=== PATIENT | male | born 2000 | race Caucasian/White ===

== ENCOUNTER 2024-06-24 08:52 | Outpatient (OUT) | payer BC, SELFPAY ==
--- NOTE | 2024-06-24 | XR_ITS ---
The [address] [address] Patient Name: MARTHA CROWE MRN: [id number] date: 2000 Sex: M Assigned Patient Location: Current Patient Location: Accession/Order Number: [id number] Exam Date: 06/24/2024 08:53 Report Date: 06/25/2024 05:26 At the request of: HAO ZIMMER Procedure: XR ankle RT min 3V PROCEDURE: XR ankle RT min 3V HISTORY: RIGHT ANKLE PAIN ; lateral ankle pain since injury 2 months ago COMPARISON: None. FINDINGS: BONES:No fracture, acute abnormality, or significant arthropathy. SOFT TISSUES:No visible soft tissue swelling. EFFUSION:None visible. OTHER: Negative. XR/XR ankle RT min 3V IMPRESSION: 1. Normal appearance of right ankle. Electronically authenticated by: KYARA HERNANDEZ Date: 06/25/2024 05:26
== END 2024-06-24 08:53 | disposition home or self-care (01) ==
LOC: EC 08:52
PROVIDERS: Visit Provider Podiatrist Foot & Ankle Surgery
DX: M25.571 Pain in right ankle and joints of right foot (principal)
CPT/HCPCS: 73610

== ENCOUNTER 2024-07-16 08:44 | Outpatient (RCR) | payer BC, SELFPAY | END 2024-08-19 09:34 | disposition home or self-care (01) | LOC: PT 08:44 | PROVIDERS: Visit Provider Podiatrist Foot & Ankle Surgery | DX: S93.491S Sprain of other ligament of right ankle, sequela (principal) | CPT/HCPCS: 97010; 97014; 97110; 97112; 97140; 97161 ==